=== PATIENT | male | born 1960 | race Hispanic/Latino ===

== ENCOUNTER → 2020-06-25 | Emergency (ER) | payer SELFPAY ==
[~2020-06-25] VITALS: Ht 170.2 cm; Wt 99.8 kg
[~2020-06-25] MED LIST: HYDROCODONE/APAP 7.5MG-325MG 1 EA TAB PO NR; KETOROLAC TROMETHAMINE 30 MG/ML VIAL ONE; KETOROLAC TROMETHAMINE 60 MG/2 ML VIAL IM ONE; ROBAXIN-750750 MG PO; ULTRAM 50MG50 MG PO
== END | disposition home or self-care (01) ==
LOC: ER 11:57
DX: S39.012A Strain of muscle, fascia and tendon of lower back, initial encounter (principal); W11.XXXA Fall on and from ladder, initial encounter; Y99.0 Civilian activity done for income or pay; I10 Essential (primary) hypertension; E11.9 Type 2 diabetes mellitus without complications; E78.5 Hyperlipidemia, unspecified
CPT/HCPCS: 72110; 99283; J1885

== ENCOUNTER 2022-11-26 21:18 | Emergency (ER) | payer OTHER ==
[~2022-11-26] VITALS: Ht 170.2 cm; Wt 99.8 kg
[~2022-11-26 21:18] MED LIST changes: -HYDROCODONE/APAP 7.5MG-325MG 1 EA TAB PO NR; -KETOROLAC TROMETHAMINE 30 MG/ML VIAL ONE; -KETOROLAC TROMETHAMINE 60 MG/2 ML VIAL IM ONE
[2022-11-26 22:13] LABS: BASOPHILS % 0.3 % (0.0-1.0); EOSINOPHILS # (AUTO) 0.2 (0.0-0.4); EOSINOPHILS % 1.6 % (0.0-6.0); HEMATOCRIT 39.8 % (38.2-49.6); HEMOGLOBIN 13.5 g/dL (14.0-18.0); LYMPHOCYTES % 18.3 % (18.0-39.1); MEAN CORPUSCULAR HGB CONC 33.9 g/dL (31-35); MEAN CORPUSCULAR VOLUME 85.6 fL (81-99); MONOCYTES # (AUTO) 0.7 (0.2-0.8); MONOCYTES % 6.8 % (4.4-11.3); NEUTROPHILS # (AUTO) 7.8 (2.1-6.9); NEUTROPHILS % 72.8 % (38.7-80.0); PLATELET COUNT 211 x10e3/uL (140-360); RED BLOOD COUNT 4.65 x10e6/uL (4.3-5.7); RED CELL DISTRIBUTION WIDTH 13.2 % (11.7-14.4)
[2022-11-26 22:19] LABS: CLARITY,URINE CLEAR (CLEAR); COLOR,URINE YELLOW (YELLOW); KETONES,URINE NEGATIVE (NEGATIVE); LEUKOCYTE ESTERASE ,URINE NEGATIVE (NEGATIVE); NITRITE,URINE NEGATIVE (NEGATIVE); PROTEIN,URINE DIPSTICK NEGATIVE (NEGATIVE); URINE UROBILINOGEN 0.2 mg/dL (0.2 - 1)
[2022-11-26 22:24] LABS: BACTERIA,URINE RARE /HPF; EPITHELIAL CELLS,URINE RARE /LPF; WBC,URINE (MAN) 0-5 /HPF (0-5)
[2022-11-26 22:34] LABS: ALBUMIN 4.1 g/dL (3.5-5.0); ALBUMIN/GLOBULIN RATIO 1.1 (0.8-2.0); ANION GAP 16.3 mmol/L (8-16); CREATININE, SERUM 0.99 mg/dL (0.72-1.25); POTASSIUM 4.3 mmol/L (3.5-5.1)
[2022-11-26] MEDS ORDERED: IOPAMIDOL 370 MG/ML 100 ML INFUS..BTL INJ ONE (22:39)
[2022-11-27 00:11] VITALS: O2SAT 97
== END 2022-11-27 00:35 | disposition home or self-care (01) ==
LOC: ER 21:21
DX: G89.18 Other acute postprocedural pain (principal); R10.30 Lower abdominal pain, unspecified; Z96.641 Presence of right artificial hip joint
CPT/HCPCS: 36415; 74177; 80053; 81001; 83690; 84484; 85025; 93005; 99284; Q9967